=== PATIENT | female | born 1945 | race Caucasian/White ===

== ENCOUNTER 2017-07-28 06:54 | Observation (INO) | payer MEDICARE, OTHER ==
[2017-07-26 09:51] LABS: BASOPHILS % 0.4 % (0.0-1.0); EOSINOPHILS # (AUTO) 0.1 (0.0-0.4); HEMATOCRIT 41.9 % (34.2-44.1); HEMOGLOBIN 13.5 g/dL (12.0-16.0); LYMPHOCYTES # (AUTO) 2.1 (1.0-3.2); LYMPHOCYTES % 28.3 % (18.0-39.1); MEAN CORPUSCULAR HGB CONC 32.2 g/dL (31-35); MEAN CORPUSCULAR VOLUME 86.9 fL (81-99); MONOCYTES # (AUTO) 0.5 (0.2-0.8); MONOCYTES % 6.8 % (4.4-11.3); NEUTROPHILS # (AUTO) 4.6 (2.1-6.9); NEUTROPHILS % 63.2 % (38.7-80.0); PLATELET COUNT 148 x10e3/uL (140-360); RED BLOOD COUNT 4.82 x10e6/uL (3.6-5.1); RED CELL DISTRIBUTION WIDTH 14.5 % (11.7-14.4)
[2017-07-26 09:57] LABS: INR 1.06
[2017-07-26 09:58] LABS: PARTIAL THROMBOPLASTIN TIME 31.6 seconds (23.8-35.5)
[2017-07-26 10:04] LABS: ANION GAP 13.9 mmol/L (8-16); BLOOD UREA NITROGEN 14 mg/dL (7-26); BUN/CREATININE RATIO 17 (6-25); CALCIUM 10.2 mg/dL (8.4-10.2); CARBON DIOXIDE 29 mmol/L (22-29); CHLORIDE 100 mmol/L (98-107); CREATININE, SERUM 0.81 mg/dL (0.57-1.11); EST GLOMERULAR FILTRATION RATE > 60 ML/MIN (60-); GLUCOSE 222 mg/dL (74-118); POTASSIUM 3.9 mmol/L (3.5-5.1); SODIUM 139 mmol/L (136-145)
--- NOTE | 2017-07-26 12:30 | Diagnostic Imaging Report ---
PROCEDURE: X-RAY CHEST, TWO VIEWS COMPARISON: Patients [facility], DX, CHEST 2 VIEWS, 01/27/2015, 10:03. INDICATIONS: C-SPINE SURGERY PRE OP FINDINGS: LUNGS: No consolidations or edema. PLEURA: No effusions or pneumothorax. HEART \T\ MEDIASTINUM: The heart is within normal size-limits. Tortuous thoracic aorta. BONES \T\ SOFT TISSUES: No acute findings. Degenerative change of the spine. Clips in the right upper quadrant of the abdomen from a previous cholecystectomy. CONCLUSION: No acute thoracic abnormality. Von Laguerre D.O. Dictated by: Von Laguerre D.O. on 07/26/2017 at 12:31 Electronically approved by: Von Laguerre D.O. on 07/26/2017 at 12:31
[~2017-07-28] VITALS: Ht 165.1 cm; Wt 95.3 kg
[~2017-07-28 06:54] MED LIST: ALLERGY; ALLERGY SHOT; ASPERCREME 1035.4 GM TOP; ASPIRIN EC81 MG PO; Aspirin PO; B-121000 MCG PO; BIOTIN PO; CEFAZOLIN SOD 1 GM VIAL ONE; FIBER GUMMIES2.5 GM PO; GLIMEPERIDE PO; LISINOPRIL; LISINOPRIL5 MG PO; LIVALO2 MG PO; MECLIZINE PO; METFORMIN HCL500 MG PO; NAPROSYN375 MG; NEXIUM40 MG; NORCO 7.5-3251 EACH PO; TYLENOL EXTRA500 MG PO; VITAMIN D1000 UNIT PO; ZANTAC
--- OUTSIDE RECORDS SUMMARY | 2017-07-28 06:57 | XMS REPORT ---
Author Author [facility] Address Unknown Phone Unavailable Care Team Providers Care Jewelry Bench Molder Name Role Phone NICOLÁS SOTELO Unavailable Unavailable Problems This patient has no known problems. Allergies, Adverse Reactions, Alerts This patient has no known allergies or adverse reactions. Medications This patient has no known medications. Results Test Description Test Time Test Comments Text Results Atomic Results Result Comments CHEST 2 VIEWS [facility] [address] [place] [address] Patient Name: ORTIZ CARRASQUILLO MR #: [id number] : 1945 Age/Sex: 71/F Req # : [id number] Adm Physician: Ordered by: NICOLÁS SOTELO MD Report #: [id number] Location: OR Room/Bed: Procedure: [id number] DX/CHEST 2 VIEWS Exam Date: 07/26/17 Exam Time: 1020 REPORT STATUS: Signed PROCEDURE: X-RAY CHEST, TWO VIEWS COMPARISON: [facility], DX, CHEST 2 VIEWS, 01/27/2015, 10:03. INDICATIONS: C-SPINE SURGERY PRE OP FINDINGS: LUNGS: No consolidations or edema. PLEURA: No effusions or pneumothorax. HEART T MEDIASTINUM: The heart is within normal size-limits. Tortuous thoracic aorta. BONES T SOFT TISSUES: No acute findings. Degenerative change of the spine. Clips in the right upper quadrant of the abdomen from a previous cholecystectomy. CONCLUSION: No acute thoracic abnormality. Pily Laguerre D.O. Dictated by: Pily Laguerre D.O. on 07/26/2017 at 12:31 Electronically approved by: Pily Laguerre D.O. on 07/26/2017 at 12:31 Dictated By: PILY LAGUERRE DO 1231 Transcribed By: KRISTEN on 07/26/17 1231 COPY TO: NICOLÁS SOTELO MD
[2017-07-28] MEDS ORDERED: THROMBIN FOR SOLN 5,000 UNIT VIAL ONE (07:10)
[2017-07-28] MEDS ORDERED: BUPIVACAINE 0.5%/EPI 30 ML SDV INJ ONE (07:10)
[2017-07-28] MEDS ORDERED: GELATIN SPONGE SZ 100 ONE (07:10)
[2017-07-28] MEDS ORDERED: BACITRACIN 50,000 UNIT VIAL ONE (07:10)
[2017-07-28] MEDS ORDERED: MORPHINE SULFATE 5 MG/ML VIAL IM PRN (09:15)
[2017-07-28] MEDS ORDERED: ONDANSETRON HCL INJ 2 MG/ML VIAL IV PRN (09:15)
[2017-07-28] MEDS ORDERED: ZOLPIDEM TARTRATE 5 MG TAB PO PRN (09:15)
[2017-07-28] MEDS ORDERED: PROMETHAZINE HCL (IM) 25 MG/ML VIAL IM PRN (09:15)
[2017-07-28] MEDS ORDERED: CARISOPRODOL 350 MG TAB PO PRN (09:15)
[2017-07-28] MEDS ORDERED: MAGNESIUM/ALUMINUM/SIMETHICONE 30 ML UDC PO PRN (09:15)
[2017-07-28] MEDS ORDERED: DEXTROSE 50% SYRINGE 50 ML IV PRN (09:15)
[2017-07-28] MEDS ORDERED: HYDROMORPHONE 2MG/ML INJ IV PRN (09:15)
[2017-07-28] MEDS ORDERED: ACETAMINOPHEN 325 MG TAB PO PRN (09:15)
--- NOTE | 2017-07-28 10:29 | Operative Report ---
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 POSTOPERATIVE DIAGNOSES: C5-6 disk herniation and spondylosis and kyphosis with right-sided radiculopathy, M50.122. PROCEDURES: 1. C5-6 anterior cervical diskectomy and microsurgical osteophyte resection and allograft fusion, 43015. 2. Preparation of MTF cortical cancellous allograft, 65861. 3. C5-6 anterior cervical plating with Synthes ZPN plate, 26327. ANESTHESIA: General. INDICATIONS: The patient is a woman who presents with C5-6 disk herniation and spondylosis with severe right-sided foraminal stenosis and right-sided cervical radiculopathy, and was taken to the operating room for anterior cervical decompression and fusion. DESCRIPTION OF PROCEDURE: After induction of general anesthesia, the patient was placed on the operating table in the supine position. The right side of the neck was prepped and draped in sterile fashion. The fluoroscopic C-arm was positioned in cross-table lateral orientation. A transverse incision was created on right side of the neck superimposed on the C5-6 disk space as determined by fluoroscopy. The platysma was divided in line with the incision. The subplatysmal dissection was carried out. An avascular plane of dissection was developed medial to sternocleidomastoid muscle and was followed medial to the carotid sheath to the anterior border of the cervical spine. The deep cervical fascia was opened. The esophagus was retracted to the left. The attachments of longus colli muscles to the anterolateral aspects of vertebral bodies of C5 and C6 were divided. The anterior longitudinal ligament was resected. [place] posts were inserted into C5 and C6. A [place] distractor was used to distract the disk space. The anterior annulus of disk was incised with #11 blade. The contents of the disk were thoroughly evacuated with angled curettes and pituitary rongeurs. The posterior osteophytes were meticulously drilled with a 2-mm cutting bur on a high-speed drill until they were completely removed. The posterior annulus of disk, herniated disk material, and the posterior longitudinal ligament were resected [id number] until the dura was fully exposed and decompressed. On the right side, a large osteophyte came into view, continues with the hypertrophic uncinate process. This was meticulously drilled away and then mobilized with a micro hook and dissected free of the proximal portion of the C6 nerve root and finally resected. Excellent decompression of the C6 nerve root was thus achieved. The endplates were then prepared for fusion. The disk space was sized and found to be 8 mm in size. A piece of MTF cortical cancellous allograft measuring 8 mm in thickness was selected and prepared in saline and loaded onto a Synthes ZPN plate. This was then inserted into the C5-6 disk space under distraction and fluoroscopic guidance and tamped in place until the anterior margin of the plate was flushed with the anterior margin of vertebral bodies. The plate was then secured to the endplates of C5 and C6 with 2 pairs of 14-mm screws. All screws were locked and excellent construct was obtained. The wound was copiously irrigated with bacitracin solution. Meticulous hemostasis was secured. Retractor was removed. The platysma was closed with 3-0 Vicryl sutures. The skin was closed with 4-0 Monocryl sutures in subcuticular fashion. Steri-Strips and dressing were applied. The patient was awakened, extubated, and taken to postanesthesia care unit in stable condition. No intraoperative complications were encountered. Estimated blood loss was 10 mL. Job#: [id number]
[2017-07-28 11:14] VITALS: BP 136/66
[2017-07-28] MEDS: INSULIN LISPRO 100 UNIT/1 ML 3ML VIAL SQ SCH ×3 (11:43→20:37)
[2017-07-28 11:55] VITALS: BP 136/66
[2017-07-28] MEDS ORDERED: CEFAZOLIN SOD 1 GM/NS 50ML 50 ML IV SCH (14:00)
[2017-07-28] MEDS: OXYCODONE/ACETAMINOPHEN 5-325 1 EACH TABLET PO PRN (14:10)
[2017-07-28] MEDS: LACTATED RINGER'S 1,000 ML IV SCH ×3 (14:40→19:15)
[2017-07-28 15:32] VITALS: BP 136/74
[2017-07-28] MEDS: CEFAZOLIN SOD 1 GM VIAL IV SCH (16:57)
[2017-07-28] MEDS ORDERED: METFORMIN HCL 500 MG TAB PO SCH (17:00)
[2017-07-28] MEDS ORDERED: DEXAMETHASONE SOD PHOS INJ 4 MG/ML VIAL ONE (17:20)
[2017-07-28] MEDS ORDERED: ONDANSETRON HCL INJ 2 MG/ML VIAL ONE (17:20)
[2017-07-28] MEDS ORDERED: LIDOCAINE HCL 2% LOCAL INJ 5 ML SDV VIAL INJ ONE (17:20)
[2017-07-28] MEDS ORDERED: SEVOFLURANE INHAL SOLN 250 ML PEN BTL ONE (17:20)
[2017-07-28] MEDS ORDERED: PROPOFOL IV EMULSION 10 MG/ML 20 ML VIAL ONE (17:20)
[2017-07-28] MEDS ORDERED: ROCURONIUM BROMIDE 10 MG/ML 5ML VIAL ONE (17:20)
[2017-07-28] MEDS ORDERED: FENTANYL CITRATE/PF 100MCG/2 ML INJ ONE (17:34)
[2017-07-28] MEDS ORDERED: MIDAZOLAM HCL 2 MG/2 ML VIAL ONE (17:34)
[2017-07-28 19:00] VITALS: BP 123/60
[2017-07-28] MEDS ORDERED: SIMVASTATIN 20 MG TAB PO SCH (21:00)
[2017-07-28 21:36] VITALS: BP 123/60
[2017-07-29] MEDS: CEFAZOLIN SOD 1 GM VIAL IV SCH ×2 (00:12→08:25)
[2017-07-29 00:22] VITALS: BP 129/60
[2017-07-29] MEDS: OXYCODONE/ACETAMINOPHEN 5-325 1 EACH TABLET PO PRN ×2 (04:37→09:36)
[2017-07-29 04:55] VITALS: BP 143/63
--- NOTE | 2017-07-29 07:14 | Diagnostic Imaging Report ---
C-SPINE 2 VIEWS AP LATERAL HISTORY: Status post surgical fixation of the cervical spine. COMPARISON: None FINDINGS: Bones: No displaced fracture. Status post anterior surgical repair and fusion of C5-6 with intervertebral disc spacer and anterior fixation screws Osseous alignment is within normal limits. Joints: Degenerative changes at C6-7. Soft tissues: Minimal prevertebral emphysema. IMPRESSION: Good alignment and position of surgical fusion of C5-6 without hardware failure or loosening. Signed by: Dr. Akash Kidd M.D. on 07/29/2017 7:11 AM
[2017-07-29] MEDS: INSULIN LISPRO 100 UNIT/1 ML 3ML VIAL SQ SCH (07:30)
[2017-07-29 07:58] VITALS: BP 142/69
[2017-07-29] MEDS ORDERED: METFORMIN HCL 500 MG TAB PO SCH (08:00)
[2017-07-29] MEDS ORDERED: PITAVASTATIN CALCIUM 2 MG PO SCH (09:00)
[2017-07-29] MEDS ORDERED: CYANOCOBALAMIN 1000 MG PO SCH (09:00)
[2017-07-29] MEDS ORDERED: BIOTIN 2000 MCG PO SCH (09:00)
[2017-07-29] MEDS ORDERED: NON-FORMULARY MEDICATION (Lisinopril 5 MG) PO SCH (09:00)
[2017-07-29] MEDS ORDERED: LISINOPRIL 10 MG TAB PO SCH (09:00)
[2017-07-29] MEDS ORDERED: CYANOCOBALAMIN 1,000 MCG TAB PO SCH (09:00)
[2017-07-29] MEDS ORDERED: CHOLECALCIFEROL 1,000 UNIT TAB PO SCH (09:00)
[2017-07-29] MEDS ORDERED: [UNRECOGNIZED DRUG - OTHER] PO SCH (09:00)
== END 2017-07-29 10:21 | disposition home or self-care (01) ==
LOC: OR 06:54 → IMCU 09:43
PROVIDERS: ADMIT Neurological Surgery; ATTEND Neurological Surgery
DX: M50.122 Cervical disc disorder at C5-C6 level with radiculopathy (principal); I10 Essential (primary) hypertension; E11.9 Type 2 diabetes mellitus without complications; E78.5 Hyperlipidemia, unspecified; R12 Heartburn; K21.9 Gastro-esophageal reflux disease without esophagitis
CPT/HCPCS: 20931; 22551; 22845; 36415 ×3; 71046; 72040; 77003; 80048; 82948 ×2; 85025; 85610; 85730; 86850; 86900; 88304; 93005; 96372; 96376; C1713 ×2; C9359; G0378 ×2; J0690 ×2; J1100; J2001; J2250; J2270; J2405

== ENCOUNTER → 2017-11-03 | Day surgery (SDC) | payer MEDICARE, OTHER ==
[2017-11-02 10:01] LABS: BASOPHILS % 0.4 % (0.0-1.0); EOSINOPHILS # (AUTO) 0.1 (0.0-0.4); EOSINOPHILS % 1.1 % (0.0-6.0); HEMATOCRIT 44.4 % (34.2-44.1); HEMOGLOBIN 14.4 g/dL (12.0-16.0); LYMPHOCYTES # (AUTO) 2.2 (1.0-3.2); MEAN CORPUSCULAR HEMOGLOBIN 28.4 pg (28-32); MEAN CORPUSCULAR HGB CONC 32.4 g/dL (31-35); MEAN CORPUSCULAR VOLUME 87.6 fL (81-99); MONOCYTES # (AUTO) 0.5 (0.2-0.8); MONOCYTES % 6.9 % (4.4-11.3); NEUTROPHILS # (AUTO) 4.3 (2.1-6.9); NEUTROPHILS % 60.2 % (38.7-80.0); PLATELET COUNT 140 x10e3/uL (140-360); RED BLOOD COUNT 5.07 x10e6/uL (3.6-5.1); RED CELL DISTRIBUTION WIDTH 14.9 % (11.7-14.4)
[~2017-11-03] MED LIST changes: -CEFAZOLIN SOD 1 GM VIAL ONE; +DEXAMETHASONE SOD PHOS 10 MG/1 ML VIAL ONE; +EXCEDRIN EXTRA1 EAC1 PO; +FENTANYL CITRATE/PF 100MCG/2 ML INJ ONE; +IOPAMIDOL 200 MG/ML 20 ML VIAL IT ONE; +JANUMET 50-1,01 EACH PO; +LIDOCAINE HCL 1% 30ML-PF VIAL ONE; +LIDOCAINE HCL 2% LOCAL INJ 5 ML SDV VIAL INJ ONE; +MIDAZOLAM HCL 2 MG/2 ML VIAL ONE; +PROPOFOL IV EMULSION 10 MG/ML 20 ML VIAL ONE
== END | disposition home or self-care (01) ==
LOC: OR 05:06
PROVIDERS: ATTEND Physical Medicine & Rehabilitation Pain Medicine
DX: M47.26 Other spondylosis with radiculopathy, lumbar region (principal); M51.17 Intervertebral disc disorders with radiculopathy, lumbosacral region; I10 Essential (primary) hypertension; E11.9 Type 2 diabetes mellitus without complications; E78.00 Pure hypercholesterolemia, unspecified; Z01.810 Encounter for preprocedural cardiovascular examination; Z01.812 Encounter for preprocedural laboratory examination; K21.9 Gastro-esophageal reflux disease without esophagitis; Z79.84 Long term (current) use of oral hypoglycemic drugs; Z79.82 Long term (current) use of aspirin; Z87.891 Personal history of nicotine dependence
CPT/HCPCS: 36415 ×2; 64483; 64484; 82948; 85025; 93005; J1100; J2001 ×2; J2250; Q9966; 77003

== ENCOUNTER → 2017-11-10 | Day surgery (SDC) | payer MEDICARE, OTHER ==
[~2017-11-10] MED LIST changes: +BUPIVACAINE 0.25% 30ML SDV INJ ONE; +ONDANSETRON HCL INJ 2 MG/ML VIAL ONE
== END | disposition home or self-care (01) ==
LOC: OR 05:26
PROVIDERS: ATTEND Physical Medicine & Rehabilitation Pain Medicine
DX: M47.26 Other spondylosis with radiculopathy, lumbar region (principal); M51.36 Other intervertebral disc degeneration, lumbar region; R93.7 Abnormal findings on diagnostic imaging of other parts of musculoskeletal system; I10 Essential (primary) hypertension; E11.9 Type 2 diabetes mellitus without complications; E78.00 Pure hypercholesterolemia, unspecified; Z87.891 Personal history of nicotine dependence; E66.9 Obesity, unspecified; Z79.82 Long term (current) use of aspirin; Z79.84 Long term (current) use of oral hypoglycemic drugs; Z68.33 Body mass index [BMI] 33.0-33.9, adult; Z96.659 Presence of unspecified artificial knee joint
CPT/HCPCS: 36415; 64483; 64484; 82948; J1100; J2001 ×2; J2250; J2405; Q9966; 77003

== ENCOUNTER → 2018-01-16 | Day surgery (SDC) | payer MEDICARE, OTHER ==
[~2018-01-16] MED LIST changes: +AUGMENTIN 875-1 EACH PO; +BIOTIN800 MCG PEG; -BUPIVACAINE 0.25% 30ML SDV INJ ONE; +CEFTRIAXONE SOD 1 GM VIAL ONE; +CIPRO500 MG PO; -DEXAMETHASONE SOD PHOS 10 MG/1 ML VIAL ONE; +DEXAMETHASONE SOD PHOS INJ 4 MG/ML VIAL ONE; +GLIMEPIRIDE2 MG PO; -IOPAMIDOL 200 MG/ML 20 ML VIAL IT ONE; +IOPAMIDOL 610MG/1ML 300 MG/ML VIAL IV ONE; +LEVOCETIRIZINE D5 MG PO; -LIDOCAINE HCL 1% 30ML-PF VIAL ONE; +MAGNESIUM; +MAGNESIUM OXID400 MG PO; +MECLIZINE HCL12.5 MG PO; +NORCO 5-325 TA1 EACH PO; +SCOPOLAMINE 1.5 MG PATCH ONE; +SEVOFLURANE INHAL SOLN 250 ML PEN BTL ONE
[2018-01-16 10:26] LABS: BASOPHILS % 0.4 % (0.0-1.0); EOSINOPHILS # (AUTO) 0.1 (0.0-0.4); EOSINOPHILS % 1.4 % (0.0-6.0); HEMATOCRIT 42.4 % (34.2-44.1); HEMOGLOBIN 13.4 g/dL (12.0-16.0); LYMPHOCYTES % 25.7 % (18.0-39.1); MEAN CORPUSCULAR HEMOGLOBIN 28.2 pg (28-32); MEAN CORPUSCULAR HGB CONC 31.6 g/dL (31-35); MEAN CORPUSCULAR VOLUME 89.3 fL (81-99); MONOCYTES # (AUTO) 0.7 (0.2-0.8); MONOCYTES % 8.4 % (4.4-11.3); NEUTROPHILS # (AUTO) 5.1 (2.1-6.9); NEUTROPHILS % 63.6 % (38.7-80.0); PLATELET COUNT 133 x10e3/uL (140-360); RED BLOOD COUNT 4.75 x10e6/uL (3.6-5.1); RED CELL DISTRIBUTION WIDTH 15.1 % (11.7-14.4)
[2018-01-16 10:45] LABS: ANION GAP 15.9 mmol/L (8-16); BLOOD UREA NITROGEN 15 mg/dL (7-26); BUN/CREATININE RATIO 19 (6-25); CALCIUM 10.3 mg/dL (8.4-10.2); CARBON DIOXIDE 28 mmol/L (22-29); CHLORIDE 101 mmol/L (98-107); CREATININE, SERUM 0.81 mg/dL (0.57-1.11); EST GLOMERULAR FILTRATION RATE > 60 ML/MIN (60-); GLUCOSE 137 mg/dL (74-118); POTASSIUM 3.9 mmol/L (3.5-5.1); SODIUM 141 mmol/L (136-145)
[2018-01-16 13:43] VITALS: BP 148/70
--- NOTE | 2018-01-16 16:42 | Operative Report ---
DATE OF PROCEDURE: January 16, 2018 PREOPERATIVE DIAGNOSIS: Right ureteral calculus. POSTOPERATIVE DIAGNOSIS: Right ureteral calculus. PROCEDURES 1. Right-sided ureteroscopy with laser lithotripsy. 2. Right-sided ureteroscopy with stone extraction (entirely separate procedure for explicit purposes of sending stone for analysis). 3. Supervision of fluoroscopy. 4. Interpretation of retrograde pyelography. ANESTHESIA: General. ESTIMATED BLOOD LOSS: Minimal. COMPLICATIONS: None. INDICATIONS: Mrs. Pires is a very pleasant 72-year-old female who has had bilateral calculi, now presents with a stone dropped into her right ureter with colic and failure of trial of passage. She and I had a long discussion about alternatives, risks and benefits, including doing nothing, ureteroscopy, shock wave lithotripsy, percutaneous or open surgery. She voiced understanding of the options, alternatives, the risks, and the benefits, and she elected to proceed. PROCEDURE IN DETAIL: After informed consent was obtained, the patient was taken to the operating suite and placed supine on the table, and underwent general anesthesia by the anesthesia service. She was placed in the dorsal lithotomy position and sterilely prepped and draped in the standard fashion for cystoscopy. A 22.5-Afghan cystoscope was inserted per urethra. Normal urethra was noted. Panendoscopy revealed no tumors. No stones. Both ureteral orifices were within normal anatomic location and position and seen to efflux clear urine. Right ureteral orifice was catheterized. Retrograde pyelogram revealed an approximately 6 mm distal ureteral calculus. The ureter was dilated. The ureteroscope was advanced to the level of the ureteral calculus. A 360 micron laser with fiber was used to obliterate the stone into multiple small fragments. Right retrograde was taken. Several of these fragments were basket extracted and passed off the table as specimen. The ureteroscope was then inserted in the proximal ureter, and retrograde pyelogram was performed with the ureteroscope revealing a dilated collecting system. No other obstructing stone seen. Safety wire was removed. The bladder was drained. The patient was awakened from anesthesia, and transported to the recovery room in excellent condition . SUPERVISION OF FLUOROSCOPY, INTERPRETATION OF RETROGRADE URETERAL PYELOGRAPHY: I was present throughout the entire procedure and I supervised the use of fluoroscopy as no radiologist was present at any time during this procedure. Attention was turned toward the right ureter. It was catheterized with the ureteroscope. Retrograde pyelogram was performed and revealed a dilated ureter and dilated collecting system and intraluminal removal of the calculus. Job#: [id number] RI
--- OUTSIDE RECORDS SUMMARY | 2018-01-17 14:18 | XMS REPORT | Continuity of Care Document ---
Author Author [facility] Interface Address Unknown Phone Unavailable Problems Problem Status Onset Date Classification Date Reported Comments Source Medications Medication Details Route Status Patient Instructions Ordering Provider Order Date Source Allergies, Adverse Reactions, Alerts Substance Category Reaction Severity Reaction type Status Date Reported Comments Source Immunizations Immunization Date Given Site Status Last Updated Comments Source Results Order Name Results Value Reference Range Date Interpretation Comments Source Vital Signs Vital Sign Value Date Comments Source Encounters Location Location Details Encounter Type Encounter Number Reason For Visit Attending Provider ADM Date DC Date Status Source Outpatient [id number] WILLIAM JACKSON 06/28/2017 Active [facility] Outpatient [id number] JAVON BLACK 07/11/2017 Active [facility] Outpatient [id number] JAVON BLACK 07/21/2017 Active [facility] Procedures Procedure Code Date Perfomer Comments Source
== END | disposition home or self-care (01) ==
LOC: OR 09:14
PROVIDERS: ATTEND Urology
DX: N20.1 Calculus of ureter (principal); N39.0 Urinary tract infection, site not specified; N13.39 Other hydronephrosis; N20.0 Calculus of kidney; E11.9 Type 2 diabetes mellitus without complications; K21.9 Gastro-esophageal reflux disease without esophagitis; Z79.84 Long term (current) use of oral hypoglycemic drugs; Z68.34 Body mass index [BMI] 34.0-34.9, adult; Z96.652 Presence of left artificial knee joint; Z84.1 Family history of disorders of kidney and ureter
CPT/HCPCS: 36415; 52353; 74420; 80048; 82948; 85025; 88300; C1766; J0696; J1100; J2001; J2250; J2405; Q9967

== ENCOUNTER → 2018-03-15 | Day surgery (SDC) | payer MEDICARE, OTHER ==
[2018-03-13 09:27] LABS: BASOPHILS % 0.4 % (0.0-1.0); EOSINOPHILS # (AUTO) 0.1 (0.0-0.4); EOSINOPHILS % 1.3 % (0.0-6.0); HEMATOCRIT 42.9 % (34.2-44.1); HEMOGLOBIN 13.5 g/dL (12.0-16.0); MEAN CORPUSCULAR HEMOGLOBIN 28.1 pg (28-32); MEAN CORPUSCULAR HGB CONC 31.5 g/dL (31-35); MEAN CORPUSCULAR VOLUME 89.4 fL (81-99); MONOCYTES # (AUTO) 0.6 (0.2-0.8); MONOCYTES % 8.3 % (4.4-11.3); NEUTROPHILS # (AUTO) 4.2 (2.1-6.9); NEUTROPHILS % 60.7 % (38.7-80.0); PLATELET COUNT 139 x10e3/uL (140-360); RED CELL DISTRIBUTION WIDTH 14.9 % (11.7-14.4)
[~2018-03-15] MED LIST changes: -CEFTRIAXONE SOD 1 GM VIAL ONE; -DEXAMETHASONE SOD PHOS INJ 4 MG/ML VIAL ONE; +GLUCAGON FOR INJ 1 MG VIAL ONE; -IOPAMIDOL 610MG/1ML 300 MG/ML VIAL IV ONE; -LIDOCAINE HCL 2% LOCAL INJ 5 ML SDV VIAL INJ ONE; -ONDANSETRON HCL INJ 2 MG/ML VIAL ONE; -PROPOFOL IV EMULSION 10 MG/ML 20 ML VIAL ONE; +PROPOFOL IV EMULSION 10 MG/ML 50 ML VIAL ONE; -SCOPOLAMINE 1.5 MG PATCH ONE; -SEVOFLURANE INHAL SOLN 250 ML PEN BTL ONE
--- OUTSIDE RECORDS SUMMARY | 2018-03-15 07:56 | XMS REPORT | Continuity of Care Document ---
Author Author [facility] Interface Address Unknown Phone Unavailable Problems Problem Status Onset Date Classification Date Reported Comments Source Medications Medication Details Route Status Patient Instructions Ordering Provider Order Date Source Aspirin (Aspirin Ec) 81 Mg Tablet., 81 Mg Oral Daily Active 07/29/2017 [facility] Allergy Shot , 1XMO Active 07/26/2017 [facility] Biotin , 1000 Mg Oral Daily Active 07/26/2017 [facility] Esomeprazole Magnesium (Nexium) 40 Mg Capsule., Twice A Day Active 07/26/2017 [facility] Glimeperide , 4 Mg Oral Twice A Day Active 07/26/2017 [facility] Lisinopril , 5 Mg Daily Active 07/26/2017 [facility] Naproxen (Naprosyn) 375 Mg Tablet, Daily Active 07/26/2017 [facility] Trolamine Salicylate (Aspercreme 10% Cream) 35.4 Gm Cr, Topically Daily Active 07/26/2017 [facility] Zantac , Bedtime Active 07/26/2017 [facility] Hydrocodone Bit/Acetaminophen ([place] 7.5-325 Tablet) 1 Each Tablet, 1 Ea Oral Every 4 Hours as needed for Pain Active 12/05/2015 [facility] Acetaminophen (Tylenol Extra Strength) 500 Mg Tablet, 500 Mg Oral As Needed as needed for Headache Active 01/30/2015 [facility] Aspirin 325 Mg Tab, 325 Mg Oral Twice A Day Active [place] 01/30/2015 [facility] Aspirin (Aspirin Ec) 81 Mg Tablet., 81 Mg Oral As Needed Active 01/30/2015 [facility] Allergy , Monthly Active 08/24/2014 [facility] Inulin (Fiber Gummies) 2.5 Gm Tab.chew, Oral Daily Active 08/24/2014 [facility] Biotin Daily Active [facility] Cholecalciferol (Vitamin D3) (Vitamin D) 1,000 Unit Capsule Daily Active [facility] Cyanocobalamin (Vitamin B-12) (B-12) 1,000 Mcg Tablet.er Daily Active [facility] Lisinopril 5 Mg Tablet Daily Active [facility] Meclizine As Needed Active [facility] Metformin Hcl 500 Mg Tablet Twice A Day Active [facility] Pitavastatin Calcium (Livalo) 2 Mg Tablet Daily Active [facility] Allergies, Adverse Reactions, Alerts Substance Category Reaction Severity Reaction type Status Date Reported Comments Source Immunizations Immunization Date Given Site Status Last Updated Comments Source Results Order Name Results Value Reference Range Date Interpretation Comments Source Capillary blood glucose measurement by glucometer (mass/volume) Capillary blood glucose measurement by glucometer (mass/volume) 208 70 - 120 07/29/2017 [facility] Activated partial thromboplastin time (aPTT) in platelet poor plasma bycoagulation assay Activated partial thromboplastin time (aPTT) in platelet poor plasma bycoagulation assay 31.6 23.8 - 35.5 07/26/2017 [facility] Automated blood basophil count (count/volume) Automated blood basophil count (count/volume) 0.0 0.0 - 0.1 07/26/2017 [facility] Automated blood basophil count as percentage of total leukocytes Automated blood basophil count as percentage of total leukocytes 0.4 0.0 - 1.0 07/26/2017 [facility] Automated blood eosinophil count Automated blood eosinophil count 0.1 0.0 - 0.4 07/26/2017 [facility] Automated blood eosinophil count as percentage of total leukocytes Automated blood eosinophil count as percentage of total leukocytes 1.0 0.0 - 6.0 07/26/2017 [facility] Automated blood hematocrit (volume fraction) Automated blood hematocrit (volume fraction) 41.9 34.2 - 44.1 07/26/2017 [facility] Automated blood lymphocyte count as percentage ot total leukocytes Automated blood lymphocyte count as percentage ot total leukocytes 28.3 18.0 - 39.1 07/26/2017 [facility] Automated blood monocyte count as percentage of total leukocytes Automated blood monocyte count as percentage of total leukocytes 6.8 4.4 - 11.3 07/26/2017 [facility] Automated blood neutrophil count Automated blood neutrophil count 4.6 2.1 - 6.9 07/26/2017 [facility] Automated blood platelet count (count/volume) Automated blood platelet count (count/volume) 148 140 - 360 07/26/2017 [facility] Automated blood segmented neutrophil count as percentage of total leukocytes Automated blood segmented neutrophil count as percentage of total leukocytes 63.2 38.7 - 80.0 07/26/2017 [facility] Automated erythrocyte mean corpuscular hemoglobin (mass per erythrocyte) Automated erythrocyte mean corpuscular hemoglobin (mass per erythrocyte) 28.0 28 - 32 07/26/2017 [facility] Automated erythrocyte mean corpuscular hemoglobin concentration measurement (mass/volume) Automated erythrocyte mean corpuscular hemoglobin concentration measurement (mass/volume) 32.2 31 - 35 07/26/2017 [facility] Automated erythrocyte mean corpuscular volume Automated erythrocyte mean corpuscular volume 86.9 81 - 99 07/26/2017 [facility] Blood erythrocytes automated count (number/volume) Blood erythrocytes automated count (number/volume) 4.82 3.6 - 5.1 07/26/2017 [facility] Blood hemoglobin measurement (moles/volume) Blood hemoglobin measurement (moles/volume) 13.5 12.0 - 16.0 07/26/2017 [facility] Blood leukocytes automated count (number/volume) Blood leukocytes automated count (number/volume) 7.32 4.8 - 10.8 07/26/2017 [facility] Blood lymphocytes count (number/volume) Blood lymphocytes count (number/volume) 2.1 1.0 - 3.2 07/26/2017 [facility] Blood monocytes automated count (number/volume) Blood monocytes automated count (number/volume) 0.5 0.2 - 0.8 07/26/2017 [facility] Estimated glomerular filtration rate (GFR) determination Estimated glomerular filtration rate (GFR) determination null 60 07/26/2017 [facility] Glucose measurement Glucose measurement 222 74 - 118 07/26/2017 [facility] INR in Platelet poor plasma by Coagulation assay INR in Platelet poor plasma by Coagulation assay 1.06 07/26/2017 [facility] Prothrombin time (PT) in platelet poor plasma by coagulation assay Prothrombin time (PT) in platelet poor plasma by coagulation assay 13.0 11.9 - 14.5 07/26/2017 [facility] Serum or plasma anion gap Serum or plasma anion gap 13.9 8 - 16 07/26/2017 [facility] Serum or plasma calcium measurement (mass/volume) Serum or plasma calcium measurement (mass/volume) 10.2 8.4 - 10.2 07/26/2017 [facility] Serum or plasma carbon dioxide, total measurement (moles/volume) Serum or plasma carbon dioxide, total measurement (moles/volume) 29 22 - 29 07/26/2017 [facility] Serum or plasma chloride measurement (moles/volume) Serum or plasma chloride measurement (moles/volume) 100 98 - 107 07/26/2017 [facility] Serum or plasma creatinine measurement (mass/volume) Serum or plasma creatinine measurement (mass/volume) 0.81 0.57 - 1.11 07/26/2017 [facility] Serum or plasma potassium measurement (moles/volume) Serum or plasma potassium measurement (moles/volume) 3.9 3.5 - 5.1 07/26/2017 [facility] Serum or plasma sodium measurement (moles/volume) Serum or plasma sodium measurement (moles/volume) 139 136 - 145 07/26/2017 [facility] Serum or plasma urea nitrogen measurement (mass/volume) Serum or plasma urea nitrogen measurement (mass/volume) 14 7 - 26 07/26/2017 [facility] Serum or plasma urea nitrogen/creatinine mass ratio Serum or plasma urea nitrogen/creatinine mass ratio 17 6 - 25 07/26/2017 [facility] Red Cell Distribution Width 14.5 11.7 - 14.4 07/26/2017 [facility] IM GRANULOCYTES % 0.3 0.0 - 1.0 07/26/2017 [facility] Absolute Immature Granulocyte (auto 0.02 0 - 0.1 07/26/2017 [facility] Vital Signs Vital Sign Value Date Comments Source Encounters Location Location Details Encounter Type Encounter Number Reason For Visit Attending Provider ADM Date DC Date Status Source Outpatient [id number] [facility] 06/28/2017 Active [facility] Outpatient [id number] [facility] 07/11/2017 Active [facility] Outpatient [id number] [facility] 07/21/2017 Active [facility] Discharged Inpatient (obs) [id number] NICOLÁS SOTELO MD 07/28/2017 07/29/2017 [facility] Procedures Procedure Code Date Perfomer Comments Source Anterior cervical discectomy [id number] 07/28/2017 [facility] X-ray of chest, two views [id number] 07/26/2017 [facility]
[2018-03-15 11:50] VITALS: BP 139/77
--- NOTE | 2018-03-15 12:20 | Operative Report ---
DATE OF PROCEDURE: March 15, 2018 REFERRING PHYSICIAN: Thais Lanier MD PROCEDURES PERFORMED 1. Esophagogastroduodenoscopy with biopsies. 2. Colonoscopy with polypectomy. INDICATIONS FOR EGD: Cirrhosis of the liver, history of acid reflux. INDICATIONS FOR COLONOSCOPY: Surveillance colonoscopy, personal history of colon polyps. MEDICATION: Patient was done under MAC. Please see anesthesiologist's note. PROCEDURE: With the patient in the left lateral decubitus position, the flexible fiberoptic Olympus gastroscope was introduced into the esophagus under direct visualization without any difficulty. Grade-2 esophageal varices were noted. There was no active bleeding or stigmata of recent hemorrhage. The scope was then advanced with ease into the stomach, and the mucosa overlying the antrum revealed some diffuse erythema and moderate edema, and biopsies were obtained and sent to stain for H. pylori. The mucosa overlying the body and the fundus revealed some changes compatible with portal hypertensive gastropathy. The pylorus was of normal contour and shape. It was intubated with ease, and the scope was advanced all the way to the 2nd portion of the duodenum. The scope was then withdrawn slowly. Mucosa overlying the proximal 2nd portion and the duodenal bulb appeared to be within normal limits. The scope was then withdrawn back into the stomach and retroflexed. Mucosa overlying the fundus and the cardia appeared to be within normal limits. The scope was then straightened out. The stomach was decompressed. The scope was subsequently withdrawn. Patient tolerated the procedure well. IMPRESSION 1. Grade-2 esophageal varices without active bleeding or stigmata of recent hemorrhage. 2. Portal hypertensive gastropathy. PLAN: Follow up histology. Initiate Protonix 40 mg 1 p.o. q.a.m. a.c. The patient was then turned around. After adequate lubrication of the anal canal, a flexible fiberoptic Olympus colonoscope was inserted into the rectum with ease and advanced all the way to the cecum. Diverticular disease was noted to be scattered throughout but more prominent in the left colon. The cecum and the ascending colon grossly appeared to be within normal limits. One polyp was hot biopsied from the transverse colon. The descending and sigmoid other than for diverticular disease appeared to be within normal limits. The scope was then retroflexed into the distal rectum, and moderate-size internal hemorrhoids were noted, none of which was actively bleeding. The scope was then straightened out. It was subsequently withdrawn. Patient tolerated the procedure well. IMPRESSION 1. Pandiverticulosis. 2. Transverse colon polyp, hot biopsied. 3. Internal hemorrhoids, none actively bleeding. PLAN: Follow up histology. Initiate high-fiber, low-fat diet. Initiate high-fiber supplement. Patient might benefit from a followup colonoscopy in 5 years. Job#: [id number] cc:THAIS LANIER MD
== END | disposition home or self-care (01) ==
LOC: ENDO 07:54
PROVIDERS: ATTEND Internal Medicine Gastroenterology
DX: Z12.11 Encounter for screening for malignant neoplasm of colon (principal); D12.3 Benign neoplasm of transverse colon; K29.50 Unspecified chronic gastritis without bleeding; B96.81 Helicobacter pylori [H. pylori] as the cause of diseases classified elsewhere; K20.9 Esophagitis, unspecified; K21.9 Gastro-esophageal reflux disease without esophagitis; K74.60 Unspecified cirrhosis of liver; I85.10 Secondary esophageal varices without bleeding; K76.6 Portal hypertension; K31.89 Other diseases of stomach and duodenum; K57.30 Diverticulosis of large intestine without perforation or abscess without bleeding; K64.8 Other hemorrhoids; E11.9 Type 2 diabetes mellitus without complications; K44.9 Diaphragmatic hernia without obstruction or gangrene; N20.0 Calculus of kidney; I83.90 Asymptomatic varicose veins of unspecified lower extremity; R53.1 Weakness; R42 Dizziness and giddiness; R05 Cough; M19.90 Unspecified osteoarthritis, unspecified site; Z01.810 Encounter for preprocedural cardiovascular examination; Z01.812 Encounter for preprocedural laboratory examination; Z79.84 Long term (current) use of oral hypoglycemic drugs; Z87.01 Personal history of pneumonia (recurrent); Z87.891 Personal history of nicotine dependence
CPT/HCPCS: 36415 ×2; 43239; 45384; 82948; 85025; 88305; 88312; 93005; J1610; J2250; 45378

== ENCOUNTER → 2018-04-12 | Outpatient (CLI) | payer MEDICARE, OTHER ==
[~2018-04-12] MED LIST changes: -FENTANYL CITRATE/PF 100MCG/2 ML INJ ONE; -GLUCAGON FOR INJ 1 MG VIAL ONE; -MIDAZOLAM HCL 2 MG/2 ML VIAL ONE; -PROPOFOL IV EMULSION 10 MG/ML 50 ML VIAL ONE
--- NOTE | 2018-04-12 11:18 | Diagnostic Imaging Report ---
EXAM: Abdomen 1 Views INDICATION: ^CALCULUS OF KIDNEY COMPARISON: None FINDINGS: Large amount of stool in the colon. No dilated loops of small bowel. Multiple bowel sutures in the right abdomen. Right upper quadrant cholecystectomy clips. No renal calculi. No abnormal soft tissue masses. Moderate degenerative changes in the lumbar spine and pelvis. IMPRESSION: No renal stones. Signed by: Dr. Donovan Young M.D. on 04/12/2018 11:15 AM
== END ==
LOC: RAD 08:38
PROVIDERS: ATTEND Urology
DX: N20.0 Calculus of kidney (principal)
CPT/HCPCS: 74018

== ENCOUNTER → 2018-05-01 | Outpatient (CLI) | payer MEDICARE, OTHER ==
--- NOTE | 2018-05-01 08:30 | Diagnostic Imaging Report ---
EXAM: Liver Ultrasound INDICATION: Abdominal pain. ^ABN FINDINGS ON DX IMAGING OF LIVER/ABD PAIN COMPARISON: None. TECHNIQUE: Transverse and longitudinal images of the liver were obtained. FINDINGS: Liver: Size: 17.6 cm in the right midclavicular line, enlarged Appearance: Increased echogenicity, smooth contour Mass: No focal masses Gallbladder: Cholecystectomy. The sonographic Talavera's sign is negative. Bile Ducts: Intrahepatic Ducts: No dilatation Extrahepatic Ducts: Common bile duct measures 0.4 cm. Main portal vein normal with diameter of 0.9 cm. Right kidney measures 11.6 cm in length. Right kidney is normal in echotexture. No renal stones are seen. Pancreas unremarkable. Abdominal aorta and inferior vena cava are unremarkable. Free Fluid: No ascites or pleural effusion IMPRESSION: Hepatomegaly with increased echogenicity in the liver likely due to fatty infiltration. Signed by: Dr. Julian Moses M.D. on 05/01/2018 8:26 AM
== END ==
LOC: US 07:27
PROVIDERS: ATTEND Internal Medicine Gastroenterology
DX: R10.9 Unspecified abdominal pain (principal); R93.2 Abnormal findings on diagnostic imaging of liver and biliary tract
CPT/HCPCS: 76705

== ENCOUNTER → 2018-07-18 | Outpatient (CLI) | payer MEDICARE, OTHER ==
--- NOTE | 2018-07-18 08:46 | Diagnostic Imaging Report ---
Abdomen, 2 views. History: Renal stones. Comparison: 04/12/2018 Findings: The intestinal gas pattern is nonobstructive. Surgical clips in the gallbladder fossa. Multiple sutures in the right upper quadrant. There no masses or abnormal calcifications. The osseous structures reveal degenerative changes of the spine. IMPRESSION: No acute abdominal abnormality or definite findings of calcified renal stones. Signed by: Dr. Von Laguerre DO on 07/18/2018 8:43 AM
== END ==
LOC: RAD 08:06
PROVIDERS: ATTEND Urology
DX: N20.0 Calculus of kidney (principal)
CPT/HCPCS: 74018

== ENCOUNTER → 2022-07-07 | Day surgery (SDC) | payer MEDICARE, OTHER ==
[2022-07-06 13:14] LABS: BASOPHILS # (AUTO) 0.1 (0.0-0.1); BASOPHILS % 0.6 % (0.0-1.0); EOSINOPHILS # (AUTO) 0.1 (0.0-0.4); EOSINOPHILS % 1.6 % (0.0-6.0); HEMATOCRIT 46.5 % (34.2-44.1); HEMOGLOBIN 14.4 g/dL (12.0-16.0); LYMPHOCYTES # (AUTO) 2.4 (1.0-3.2); LYMPHOCYTES % 29.2 % (18.0-39.1); MEAN CORPUSCULAR HEMOGLOBIN 27.9 pg (28-32); MEAN CORPUSCULAR VOLUME 89.9 fL (81-99); MONOCYTES # (AUTO) 0.7 (0.2-0.8); MONOCYTES % 8.1 % (4.4-11.3); PLATELET COUNT 145 x10e3/uL (140-360); RED BLOOD COUNT 5.17 x10e6/uL (3.6-5.1); RED CELL DISTRIBUTION WIDTH 15.1 % (11.7-14.4)
[~2022-07-07] MED LIST changes: +ALBUTEROL SULFATE HFA 8GM INHALATION AEROSOL INH ONE; +CARVEDILOL3.125 MG PO; +FENTANYL CITRATE/PF 100MCG/2 ML INJ ONE; +HYOSCYAMINE SULFATE 0.5 MG/ML INJ ONE; +JARDIANCE10 MG PO; +LACTATED RINGER'S 1,000 ML ONE; +LIDOCAINE HCL 2% LOCAL INJ 5 ML SDV VIAL INJ ONE; +POVIDONE IODINE 0.05% 0.05 % ML PO ONE; +PROPOFOL IV EMULSION 10 MG/ML 20 ML VIAL ONE; +PROTONIX20 MG PO
[2022-07-07 14:18] VITALS: BP 110/70
== END | disposition home or self-care (01) ==
LOC: OR 12:10
PROVIDERS: ATTEND Internal Medicine Gastroenterology
DX: K62.89 Other specified diseases of anus and rectum (principal); Z86.010 Personal history of colon polyps; K57.30 Diverticulosis of large intestine without perforation or abscess without bleeding; K64.8 Other hemorrhoids; Z71.3 Dietary counseling and surveillance; K74.60 Unspecified cirrhosis of liver; E11.9 Type 2 diabetes mellitus without complications; E78.00 Pure hypercholesterolemia, unspecified; Z01.810 Encounter for preprocedural cardiovascular examination; Z01.812 Encounter for preprocedural laboratory examination; Z79.84 Long term (current) use of oral hypoglycemic drugs; Z79.899 Other long term (current) drug therapy; Z68.31 Body mass index [BMI] 31.0-31.9, adult
CPT/HCPCS: 36415 ×2; 45378; 82948; 85025; 93005; J1980; J2001; J2704; J3010; J7121